=== PATIENT | female | born 1965 | race Two or more races ===

== ENCOUNTER 2020-07-01 18:00 | Inpatient (IN) | payer MEDICAID, OTHER ==
[~2020-07-01] VITALS: Ht 167.6 cm; Wt 89.0 kg
[2020-07-01] MEDS ORDERED: CLINDAMYCIN 600MG IV 50 ML IV ONE (18:45)
[2020-07-01] MEDS ORDERED: SODIUM CHLORIDE 0.9% 500 ML IV ONE (18:45)
[2020-07-01 20:07] LABS: Basophils # (auto) 0.1 10 ^3/uL (0-0.2); Eosinophils # (auto) 0.2 10 ^3/uL (0-0.8); Hemoglobin 13.1 g/dL (12.2-16.2); Lymphocytes # (auto) 2.4 10 ^3/uL (0.4-5.4)
[2020-07-01 20:09] LABS: Basophils % (auto) 0.7 % (0.0-2.0); Eosinophils % (auto) 2.3 % (0.0-7.0); Hematocrit 35.1 % (36.0-46.0); Lymphocytes % (auto) 29.7 % (10.0-50.0); Mean Corpuscular Hemoglobin 33.6 pg (28.0-32.0); Mean Corpuscular Hgb Conc. 37.4 g/dL (32.0-36.0); Mean Corpuscular Volume 89.8 fL (80.0-100.0); Monocytes # (auto) 0.5 10 ^3/uL (0-1.3); Monocytes % (auto) 5.6 % (0.0-12.0); Neutrophils % (auto) 61.7 % (37.0-80.0); Nucleated Red Blood Cells % 0.2 %; Platelet Count (auto) 333 10^3/uL (140-450); Red Blood Cells 3.91 10^6/uL (4.0-5.20); Red Cell Distribution Width 13.8 % (11.8-14.3); White Blood Cell 8.1 10^3/uL (4.4-10.8)
[2020-07-01 20:34] LABS: Potassium 4.2 mmol/L (3.5-5.1)
[2020-07-01 20:39] LABS: Bilirubin, Total 0.5 mg/dL (0.2-1.0)
[2020-07-01 21:30] LABS: BUN/Creatinine Ratio 23.8; Calcium 7.8 mg/dL (8.5-10.1); Total Protein 7.4 g/dL (6.4-8.2)
[2020-07-01] MEDS ORDERED: cefTRIAXone 1GM/50ML D5W 50 ML IV ONE (21:45)
[2020-07-01] MEDS ORDERED: ACETAMINOPHEN 325 MG TAB PO PRN (21:45)
[2020-07-01] MEDS ORDERED: ONDANSETRON HCL 4 MG/2 ML VIAL IV PRN (21:45)
[2020-07-01] MEDS ORDERED: DEXTROSE (50%) 50ML SYRG IV PRN (21:45)
[2020-07-01] MEDS ORDERED: HYDROcodone-ACET 5/325MG TAB PO PRN (21:45)
[2020-07-01] MEDS ORDERED: TEMAZEPAM 15 MG CAP PO PRN (22:00)
[2020-07-02] MEDS: ENOXAPARIN SOD 40 MG/0.4 ML SYRINGE SC SCH ×2 (00:43→10:50)
[2020-07-02] MEDS: FAMOTIDINE 20 MG TAB PO SCH ×3 (00:43→21:25)
[2020-07-02] MEDS: InsuLIN REG 1unit/0.01ml Soln (100units/ml) SC SCH ×5 (01:06→23:52)
[2020-07-02] MEDS: ACCU-CHEK COMFORT CURVE STRIP VI SCH ×5 (01:07→23:51)
[2020-07-02] MEDS: CLINDAMYCIN 600MG IV 50 ML IV SCH ×3 (05:54→21:25)
[2020-07-02 06:56] LABS: Basophils # (auto) 0 10 ^3/uL (0-0.2); Basophils % (auto) 0.6 % (0.0-2.0); Eosinophils # (auto) 0.2 10 ^3/uL (0-0.8); Eosinophils % (auto) 2.9 % (0.0-7.0); Hematocrit 33.9 % (36.0-46.0); Hemoglobin 11.6 g/dL (12.2-16.2); Lymphocytes # (auto) 2.8 10 ^3/uL (0.4-5.4); Lymphocytes % (auto) 36.4 % (10.0-50.0); Mean Corpuscular Hemoglobin 30.3 pg (28.0-32.0); Mean Corpuscular Hgb Conc. 34.2 g/dL (32.0-36.0); Mean Corpuscular Volume 88.8 fL (80.0-100.0); Monocytes # (auto) 0.6 10 ^3/uL (0-1.3); Monocytes % (auto) 7.5 % (0.0-12.0); Neutrophils # (auto) 4.1 10 ^3/uL (1.6-8.6); Neutrophils % (auto) 52.6 % (37.0-80.0); Nucleated Red Blood Cells % 0.1 %; Platelet Count (auto) 295 10^3/uL (140-450); Red Blood Cells 3.82 10^6/uL (4.0-5.20); Red Cell Distribution Width 13.2 % (11.8-14.3); White Blood Cell 7.8 10^3/uL (4.4-10.8)
[2020-07-02 07:12] LABS: BUN/Creatinine Ratio 21.2; Calcium 8.5 mg/dL (8.5-10.1); Potassium 4.1 mmol/L (3.5-5.1)
[2020-07-02] MEDS ORDERED: LIDOCAINE 1% HCL (LOCAL ANESTH.) INJ 20ML MDV ID ONE (08:45)
[2020-07-02] MEDS ORDERED: BACITRACIN TOP OINT 1 UD PKG TOP ONE (09:01)
[2020-07-02] MEDS: cefTRIAXone 1GM/50ML D5W 50 ML IV SCH (10:50)
[2020-07-02] MEDS ORDERED: METF-370 PO (10:52)
[2020-07-02 12:52] VITALS: BP 162/80
[2020-07-02 16:59] VITALS: BP 160/80
[2020-07-02] MEDS: hydrALAZINE HCL 20 MG/ML VL IV PRN (17:07)
[2020-07-02 22:00] VITALS: BP 148/80
[2020-07-03] VITALS: BP 144/76
[2020-07-03 04:52] VITALS: BP 138/73
[2020-07-03] MEDS: ACCU-CHEK COMFORT CURVE STRIP VI SCH ×4 (05:13→23:36)
[2020-07-03] MEDS: CLINDAMYCIN 600MG IV 50 ML IV SCH ×3 (05:13→21:26)
[2020-07-03] MEDS: InsuLIN REG 1unit/0.01ml Soln (100units/ml) SC SCH ×4 (05:14→23:45)
[2020-07-03 06:37] LABS: Basophils # (auto) 0 10 ^3/uL (0-0.2); Basophils % (auto) 0.7 % (0.0-2.0); Eosinophils # (auto) 0.2 10 ^3/uL (0-0.8); Eosinophils % (auto) 2.7 % (0.0-7.0); Hematocrit 35.5 % (36.0-46.0); Hemoglobin 12.2 g/dL (12.2-16.2); Lymphocytes % (auto) 28.4 % (10.0-50.0); Mean Corpuscular Hemoglobin 30.4 pg (28.0-32.0); Mean Corpuscular Hgb Conc. 34.3 g/dL (32.0-36.0); Mean Corpuscular Volume 88.5 fL (80.0-100.0); Monocytes # (auto) 0.5 10 ^3/uL (0-1.3); Monocytes % (auto) 6.8 % (0.0-12.0); Neutrophils # (auto) 4.2 10 ^3/uL (1.6-8.6); Neutrophils % (auto) 61.4 % (37.0-80.0); Platelet Count (auto) 289 10^3/uL (140-450); Red Blood Cells 4.01 10^6/uL (4.0-5.20); Red Cell Distribution Width 13.4 % (11.8-14.3); White Blood Cell 6.9 10^3/uL (4.4-10.8)
[2020-07-03 06:56] LABS: Calcium 8.6 mg/dL (8.5-10.1); Potassium 3.7 mmol/L (3.5-5.1)
[2020-07-03 06:58] LABS: BUN/Creatinine Ratio 19.2
[2020-07-03 09:00] VITALS: BP 152/71
[2020-07-03] MEDS: ENOXAPARIN SOD 40 MG/0.4 ML SYRINGE SC SCH (09:15)
[2020-07-03] MEDS: cefTRIAXone 1GM/50ML D5W 50 ML IV SCH (09:15)
[2020-07-03] MEDS: FAMOTIDINE 20 MG TAB PO SCH ×2 (09:15→21:25)
[2020-07-03 12:46] VITALS: BP 155/67
[2020-07-03 16:45] VITALS: BP 148/70
[2020-07-03] MEDS: BACITRACIN TOP OINT 1 UD PKG TOP SCH (17:05)
[2020-07-03] MEDS: LACTULOSE 20Gm/30ML SOLN PO SCH (22:12)
[2020-07-04] MEDS: VANCOMYCIN 1GM/250ML 250 ML IV SCH ×2 (00:43→10:00)
[2020-07-04] MEDS: PIPERACILLIN-TAZOB 3.375GM 100 ML IV SCH ×2 (02:06→05:54)
[2020-07-04 04:39] VITALS: BP 148/78
[2020-07-04] MEDS: ACCU-CHEK COMFORT CURVE STRIP VI SCH ×4 (05:54→23:15)
[2020-07-04] MEDS: InsuLIN REG 1unit/0.01ml Soln (100units/ml) SC SCH ×4 (05:57→23:22)
[2020-07-04 06:24] LABS: Basophils # (auto) 0 10 ^3/uL (0-0.2); Basophils % (auto) 0.7 % (0.0-2.0); Eosinophils # (auto) 0.2 10 ^3/uL (0-0.8); Eosinophils % (auto) 3.6 % (0.0-7.0); Hematocrit 36.6 % (36.0-46.0); Hemoglobin 12.4 g/dL (12.2-16.2); Lymphocytes % (auto) 32.1 % (10.0-50.0); Mean Corpuscular Hemoglobin 30.1 pg (28.0-32.0); Mean Corpuscular Volume 88.5 fL (80.0-100.0); Monocytes # (auto) 0.6 10 ^3/uL (0-1.3); Neutrophils # (auto) 3.4 10 ^3/uL (1.6-8.6); Neutrophils % (auto) 54.6 % (37.0-80.0); Platelet Count (auto) 286 10^3/uL (140-450); Red Blood Cells 4.13 10^6/uL (4.0-5.20); Red Cell Distribution Width 13.2 % (11.8-14.3); White Blood Cell 6.2 10^3/uL (4.4-10.8)
[2020-07-04 06:38] LABS: Calcium 9.2 mg/dL (8.5-10.1); Potassium 3.9 mmol/L (3.5-5.1)
[2020-07-04 06:41] LABS: BUN/Creatinine Ratio 24.3
[2020-07-04 09:00] VITALS: BP 159/71
[2020-07-04] MEDS: FAMOTIDINE 20 MG TAB PO SCH ×2 (11:02→23:16)
[2020-07-04] MEDS: BACITRACIN TOP OINT 1 UD PKG TOP SCH (11:02)
[2020-07-04] MEDS: LACTULOSE 20Gm/30ML SOLN PO SCH (11:02)
[2020-07-04] MEDS: ENOXAPARIN SOD 40 MG/0.4 ML SYRINGE SC SCH (11:02)
[2020-07-04 13:00] VITALS: BP 139/67
[2020-07-04] MEDS ORDERED: CLINDAMYCIN 600MG IV 50 ML IV SCH (14:00)
[2020-07-04] MEDS ORDERED: CEFTRIAXONE SODIUM 2 GM in D5W 5% 50 ML IV ONE (15:00)
[2020-07-04 17:00] VITALS: BP 145/75
[2020-07-04 18:27] LABS: Urine Bacteria NONE SEEN /hpf (None Seen); Urine Blood Negative /uL (Negative); Urine Specific Gravity 1.003 (1.001-1.035); Urine WBC 1 /hpf (0 - 5)
[2020-07-04 22:00] VITALS: BP 145/75
[2020-07-04] MEDS: LINEZOLID 600MG/300ML 300 ML IV SCH (23:16)
[2020-07-05 05:00] VITALS: BP 123/64
[2020-07-05] MEDS: ACCU-CHEK COMFORT CURVE STRIP VI SCH ×4 (06:00→23:17)
[2020-07-05] MEDS: InsuLIN REG 1unit/0.01ml Soln (100units/ml) SC SCH ×4 (06:38→23:20)
[2020-07-05 07:27] LABS: Basophils # (auto) 0 10 ^3/uL (0-0.2); Basophils % (auto) 0.6 % (0.0-2.0); Eosinophils # (auto) 0.2 10 ^3/uL (0-0.8); Eosinophils % (auto) 2.6 % (0.0-7.0); Hematocrit 38.5 % (36.0-46.0); Mean Corpuscular Hemoglobin 30.2 pg (28.0-32.0); Mean Corpuscular Hgb Conc. 33.8 g/dL (32.0-36.0); Mean Corpuscular Volume 89.1 fL (80.0-100.0); Monocytes # (auto) 0.5 10 ^3/uL (0-1.3); Monocytes % (auto) 7.2 % (0.0-12.0); Neutrophils # (auto) 4.4 10 ^3/uL (1.6-8.6); Neutrophils % (auto) 61.6 % (37.0-80.0); Platelet Count (auto) 325 10^3/uL (140-450); Red Blood Cells 4.32 10^6/uL (4.0-5.20); Red Cell Distribution Width 13.5 % (11.8-14.3); White Blood Cell 7.1 10^3/uL (4.4-10.8)
[2020-07-05 07:44] LABS: Calcium 9.2 mg/dL (8.5-10.1); Potassium 4.3 mmol/L (3.5-5.1)
[2020-07-05 07:46] LABS: BUN/Creatinine Ratio 18.9
[2020-07-05 09:03] VITALS: BP 139/74
[2020-07-05] MEDS: CEFTRIAXONE SODIUM 2 GM in D5W 5% 50 ML IV SCH (11:20)
[2020-07-05] MEDS: FAMOTIDINE 20 MG TAB PO SCH ×2 (11:21→20:55)
[2020-07-05] MEDS: LINEZOLID 600MG/300ML 300 ML IV SCH ×2 (11:21→20:55)
[2020-07-05] MEDS: ENOXAPARIN SOD 40 MG/0.4 ML SYRINGE SC SCH (11:21)
[2020-07-05] MEDS: BACITRACIN TOP OINT 1 UD PKG TOP SCH (11:26)
[2020-07-05 12:47] VITALS: BP 130/72
[2020-07-05 17:00] VITALS: BP 142/77
[2020-07-05 21:59] VITALS: BP 137/71
[2020-07-06 05:00] VITALS: BP 130/69
[2020-07-06] MEDS: ACCU-CHEK COMFORT CURVE STRIP VI SCH ×4 (06:02→23:22)
[2020-07-06] MEDS: InsuLIN REG 1unit/0.01ml Soln (100units/ml) SC SCH ×4 (06:07→23:26)
[2020-07-06 09:00] VITALS: BP 150/78
[2020-07-06] MEDS: CEFTRIAXONE SODIUM 2 GM in D5W 5% 50 ML IV SCH (09:26)
[2020-07-06] MEDS: LINEZOLID 600MG/300ML 300 ML IV SCH ×2 (09:27→21:01)
[2020-07-06] MEDS: FAMOTIDINE 20 MG TAB PO SCH ×2 (09:28→21:01)
[2020-07-06] MEDS: ENOXAPARIN SOD 40 MG/0.4 ML SYRINGE SC SCH (09:28)
[2020-07-06] MEDS: BACITRACIN TOP OINT 1 UD PKG TOP SCH (09:29)
[2020-07-06 13:00] VITALS: BP 152/81
[2020-07-06 17:16] VITALS: BP 150/70
[2020-07-06 22:00] VITALS: BP 159/70
[2020-07-06] MEDS: hydrALAZINE HCL 20 MG/ML VL IV PRN (23:22)
[2020-07-07 04:29] VITALS: BP 129/64
[2020-07-07] MEDS: ACCU-CHEK COMFORT CURVE STRIP VI SCH ×2 (05:55→12:00)
[2020-07-07] MEDS: InsuLIN REG 1unit/0.01ml Soln (100units/ml) SC SCH ×2 (05:56→13:17)
[2020-07-07 08:00] VITALS: BP 138/71
[2020-07-07 09:00] VITALS: BP 138/71
[2020-07-07] MEDS: ENOXAPARIN SOD 40 MG/0.4 ML SYRINGE SC SCH (10:00)
[2020-07-07] MEDS: FAMOTIDINE 20 MG TAB PO SCH (10:00)
[2020-07-07] MEDS: BACITRACIN TOP OINT 1 UD PKG TOP SCH (10:00)
[2020-07-07] MEDS: LINEZOLID 600MG/300ML 300 ML IV SCH (10:00)
[2020-07-07] MEDS ORDERED: LINE1TAB6 PO (11:43)
[2020-07-07] MEDS ORDERED: LEVO750T64 PO (11:43)
[2020-07-07 12:52] VITALS: BP 154/70
[2020-07-07] MEDS: CEFTRIAXONE SODIUM 2 GM in D5W 5% 50 ML IV SCH (13:17)
[2020-07-07 15:20] VITALS: BP 159/70
[2020-07-07 17:00] VITALS: BP 158/82
[2020-07-07] MEDS ORDERED: INFLUENZA QUAD 2020-2021 0.5 ML SYRG IM ONE (17:17)
== END 2020-07-07 17:30 | disposition home or self-care (01) | DRG 383 ==
LOC: ER 18:00 → OVERFLOW 21:43 → EAST 07-02 08:28 → WEST WING 07-04 16:18
PROVIDERS: ADMIT Nurse Practitioner; ATTEND Internal Medicine Pulmonary Disease
PROC: 0HDRXZZ Extraction of Toe Nail, External Approach (ICD-10-PCS; principal; 2020-07-02)
DX: L03.031 Cellulitis of right toe (principal); E11.51 Type 2 diabetes mellitus with diabetic peripheral angiopathy without gangrene; E44.0 Moderate protein-calorie malnutrition; E66.9 Obesity, unspecified; I16.0 Hypertensive urgency; R78.81 Bacteremia; Z20.822 Contact with and (suspected) exposure to COVID-19; L03.115 Cellulitis of right lower limb; B96.1 Klebsiella pneumoniae [K. pneumoniae] as the cause of diseases classified elsewhere; B95.2 Enterococcus as the cause of diseases classified elsewhere; X58.XXXA Exposure to other specified factors, initial encounter; L60.0 Ingrowing nail; M65.9 Synovitis and tenosynovitis, unspecified; Z83.3 Family history of diabetes mellitus; Z89.421 Acquired absence of other right toe(s); Y93.89 Activity, other specified; Y92.89 Other specified places as the place of occurrence of the external cause; Y99.8 Other external cause status; Z23 Encounter for immunization
CPT/HCPCS: 36415; 73700; 80048; 80053; 81001; 82962; 83036; 85025; 85652; 87040; 87077; 87186; 87205; 87426; 93926; 96365; 96366; 96372; 96375; G0378; J0696; J1815; J2001; J2543; J3490; J7060

== ENCOUNTER 2020-08-21 17:21 | Emergency (ER) | payer MEDICAID, OTHER ==
[~2020-08-21] VITALS: Ht 170.2 cm; Wt 72.6 kg
[~2020-08-21 17:21] MED LIST: LEVO750T64 PO; LINE1TAB6 PO; METF-370 PO
[2020-08-21] MEDS ORDERED: FLUORESCEIN SOD OPTH TEST STRIP ONE (18:28)
[2020-08-21 18:29] VITALS: BP 158/59
[2020-08-21] MEDS ORDERED: TETRACAINE HCL 0.5% OPTH(EYE) SOLN 4ML EACHEYE ONE (18:30)
[2020-08-21] MEDS ORDERED: FLUORESCEIN SOD OPTH TEST STRIP EACHEYE ONE (18:30)
== END 2020-08-21 19:09 | disposition home or self-care (01) ==
LOC: ER 17:21
DX: H10.9 Unspecified conjunctivitis (principal); F17.210 Nicotine dependence, cigarettes, uncomplicated